=== PATIENT | male | born 1985 | race Caucasian/White ===

== ENCOUNTER 2022-07-16 17:47 | Emergency (ER) | payer SELFPAY | END 2022-07-16 21:06 | disposition left against medical advice (07) | LOC: ER 17:47 | DX: M79.606 Pain in leg, unspecified (principal); Z53.21 Procedure and treatment not carried out due to patient leaving prior to being seen by health care provider ==

== ENCOUNTER 2022-07-19 20:31 | Emergency (ER) | payer SELFPAY ==
[~2022-07-19] VITALS: Ht 182.9 cm; Wt 120.0 kg
[2022-07-19] MEDS ORDERED: diphenhdrAMINE HCL 50 MG/1 ML VL IM ONE (21:30)
[2022-07-19] MEDS ORDERED: LORazepam 2MG/ML-1ML VIAL IM ONE (21:30)
[2022-07-19 22:04] LABS: Basophils # (auto) 0.1 10 ^3/uL (0-0.2); Basophils % (auto) 0.4 % (0.0-2.0); Eosinophils # (auto) 0 10 ^3/uL (0-0.8); Eosinophils % (auto) 0.1 % (0.0-7.0); Hematocrit 50.6 % (41.0-53.0); Hemoglobin 17.2 g/dL (13.5-17.5); Lymphocytes % (auto) 6.3 % (10.0-50.0); Mean Corpuscular Hemoglobin 30.1 pg (28.0-32.0); Mean Corpuscular Volume 88.4 fL (80.0-100.0); Monocytes % (auto) 6.1 % (0.0-12.0); Neutrophils # (auto) 13.5 10 ^3/uL (1.6-8.6); Neutrophils % (auto) 87.1 % (37.0-80.0); Nucleated Red Blood Cells % 0.1 %; Red Blood Cells 5.73 10^6/uL (4.5-5.90); Red Cell Distribution Width 13.1 % (11.8-14.3); White Blood Cell 15.5 10^3/uL (4.4-10.8)
[2022-07-19 22:44] LABS: Albumin 5.3 g/dL (3.4-5.0); Anion Gap 6 (5-15); Blood Urea Nitrogen 19 mg/dL (7-18); Calcium 10.2 mg/dL (8.5-10.1); Carbon Dioxide 19 mmol/L (21-32); Chloride 113 mmol/L (98-107); Glucose 140 mg/dL (74-106); Potassium 4.2 mmol/L (3.5-5.1); Sodium 138 mmol/L (136-145)
[2022-07-19 22:47] LABS: Salicylate 3.2 mg/dL (2.8-20.0)
[2022-07-19 22:49] LABS: Alanine Aminotransferase 31 U/L (16-61); Alkaline Phosphatase 92 U/L (45-117); Aspartate Aminotransferase 33 U/L (15-37); BUN/Creatinine Ratio 9.1 (10.0-20.0); Bilirubin, Total 1.4 mg/dL (0.2-1.0); Blood Alcohol < 3.0 mg/dL (0-5); GFR African American 46 mL/min; GFR Non-African American 38 mL/min; Total Protein 9.8 g/dL (6.4-8.2)
[2022-07-19 23:08] LABS: Acetaminophen < 2.0 ug/mL (10-30)
[2022-07-20] MEDS ORDERED: LORazepam 0.5 MG TAB PO ONE (01:30)
[2022-07-20] MEDS ORDERED: LORazepam 0.5 MG TAB ONE (01:40)
[2022-07-20 15:54] LABS: Urine Bacteria FEW /hpf (None Seen); Urine Blood Negative /uL (Negative); Urine Hyaline Cast MOD /lpf (0 - 2); Urine Mucus FEW (None Seen); Urine Specific Gravity 1.033 (1.001-1.035); Urine WBC <1 /hpf (0 - 3)
[2022-07-20 16:00] LABS: Amphetamine Screen, Urine POSITIVE (NEGATIVE); Barbiturate Scree,Urine NEGATIVE (NEGATIVE); Benzodiazephine Screen, Urine NEGATIVE (NEGATIVE); Cocaine Screen, Urine NEGATIVE (NEGATIVE)
[2022-07-20 16:08] LABS: Cannabinoid Screen, Urine POSITIVE (NEGATIVE); Opiate Scree,Urine NEGATIVE (NEGATIVE); Phencyclidine Screen, Urine NEGATIVE (NEGATIVE)
[2022-07-20] MEDS: QUEtiapine FUMARATE 25 MG TAB PO SCH (23:02)
[2022-07-21] MEDS: hydrOXYzine 25 MG TAB or CAP PO PRN ×2 (10:18→13:13)
[2022-07-21] MEDS: QUEtiapine FUMARATE 25 MG TAB PO SCH (21:28)
[2022-07-22] MEDS: hydrOXYzine 25 MG TAB or CAP PO PRN (09:59)
[2022-07-22] MEDS ORDERED: INDOMETHACIN 25 MG CAP PO ONE (10:15)
[2022-07-22] MEDS: QUEtiapine FUMARATE 25 MG TAB PO SCH (22:37)
[2022-07-23] MEDS ORDERED: INDOMETHACIN 25 MG CAP PO ONE ×2 (10:15→11:00)
[2022-07-23] MEDS: hydrOXYzine 25 MG TAB or CAP PO PRN (15:43)
[2022-07-23 19:47] VITALS: BP 153/100
== END 2022-07-23 20:16 | disposition short-term general hospital (02) ==
LOC: EDBD 20:31 → ER 20:31
DX: F23 Brief psychotic disorder (principal); F12.90 Cannabis use, unspecified, uncomplicated
CPT/HCPCS: 36415; 80053; 80307; 80320; 80329; 81001; 84484; 85025; 93005; 96372; 99285; J2060